=== PATIENT | female | born 1945 | race Caucasian/White ===

== ENCOUNTER 2018-08-09 16:05 | Emergency (ER) | payer MEDICARE, SELFPAY ==
[2018-08-09 16:06] VITALS: BP 170/87; PULSE 116; RESP 18; TEMP 36.2; O2SAT 98; BMI 26.3
--- NOTE | 2018-08-09 16:18 | ED.RN ---
[id number] called for EKG in triage
--- NOTE | 2018-08-09 16:30 | ED.RN ---
abnormal EKG- chest pain protocol initiated.
--- NOTE | 2018-08-09 16:51 | EKG12_ITS ---
Test Reason : ABDOMINAL PAIN Blood Pressure : / mmHG Vent. Rate : 112 BPM Atrial Rate : 112 BPM P-R Int : 126 ms QRS Dur : 076 ms QT Int : 328 ms P-R-T Axes : 076 -19 085 degrees QTc Int : 447 ms Sinus tachycardia Inferior infarct , age undetermined Possible Anterolateral infarct , age undetermined Abnormal ECG Confirmed by GERA SALINAS, DIANA ([id number]), slot editor ANT DOWD ([id number]) on 08/11/2018 2:16:57 PM Referred By: PEE Confirmed By:DIANA BOSS MD
--- NOTE | 2018-08-09 16:55 | RAD_ITS ---
STUDY: X-RAY CHEST REASON FOR EXAM: Female, 72 years old. Chest pain TECHNIQUE: Single AP portable view of the chest. COMPARISON: None. FINDINGS: The lungs are clear and expanded. There is no demonstrated pleural abnormality. Normal size heart. Normal mediastinum and vick. Normal visualized pulmonary arteries. Normal visualized aortic arch and descending thoracic aorta. Normal visualized thoracic spine. Normal visualized ribs, clavicles, and shoulders. There is no demonstrated abnormality of the visualized soft tissue structures of the upper abdomen. RAD/Chest 1 View (Portable) IMPRESSION: Normal x-ray examination of the chest. Electronically Signed: Nam Villalta MD at 17:44 EST , Service support ,
[2018-08-09 16:58] VITALS: O2SAT 100
[2018-08-09 17:09] LABS: Absolute Lymphocyte Count 1.29 X10^3/ul (0.83-4.51); Absolute Neutrophil Count 11.3 X10^3/uL (2.0-7.7); Basophil# 0.02 X10^3/uL; Basophil% 0.1 % (0-1); Eosinophil# 0.03 X10^3/uL; Eosinophils% 0.2 % (0-5); Hematocrit 40.6 % (37-47); Hemoglobin 13.8 g/dl (12.0-15.0); Lymphocyte # 1.29 X10^3/ul (4.0); Lymphocyte % 9.3 % (19-41); Mean Corpuscular Hgb 28.5 pg (27.0-32.0); Mean Corpuscular Volume 83.7 fL (81-99); Mean Platelet Vol. 9.4 fl (6.2-12.0); Monocyte# 1.19 X10^3/uL; Monocyte% 8.6 % (0-10); Neutrophil # 11.26 X10^3/uL (2.7-7.7); Neutrophil % 81.7 % (47-70); Platelet Count 418 K/mm3 (150-450); RBC Distribution Width CV 12.5 % (11.6-14.6); RBC Distribution Width SD 37.9 fl (35.1-43.9); Red Blood Count 4.85 M/mm3 (4.2-5.4); White Blood Count 13.8 K/mm3 (4.4-11.0)
[2018-08-09 17:10] LABS: POSITIVE COUNT NO; POSITIVE DIFFERENTIAL NO; POSITIVE MORPHOLOGY NO
--- NOTE | 2018-08-09 17:18 | ED.DCSUM_ITS ---
- ER Visit Summary Date of Service: 08/09/18 Chief Complaint: Abdominal pain, vomiting History of Present Illness: The patient is a 72 F reports waxing and waning upper abdominal pain over the past 4 days. She had nausea with mild vomiting for the past 2 days. Her last bowel movement was 3 days ago. She denies fever or chills. She denies history of prior abdominal surgery. Physical Examination: Blood pressure is 170/87, temperature 97.1, heart rate 116, respiratory rate 18, pulse ox 100% on room air. Head neck examination is unremarkable. Heart is regular rhythm. Her heart rate is fluctuating between the 80s in the 1 teens at the time of my examination with frequent PACs. Lung sounds are clear. Abdomen is soft with focal tenderness in epigastrium as well as in the right upper quadrant. No guarding or rebound. Active bowel sounds are noted. Test Results: One view chest x-ray is unremarkable. EKG is sinus at [address] change. CBC was a white count 13.8 with 81% neutrophils. Chemistry studies significant for a sodium of 132. LFTs and lipase are normal. Troponin is 0.031. Emergency Department Course and Treatment: Patient was given morphine, Zofran, and IV fluids. CT scan with p.o. and IV contrast is obtained that reveals evidence of a hiatal hernia. There is no suspicious solid organ abnormality. There is no acute inflammatory process. Patient did have a repeat 3-hour EKG wh ich reveals sinus rhythm at 82 with no acute ischemia. 3-hour troponin is 0.036. Test results are discussed with patient and family at bedside. At this time patient does not take any medication for reflux. She is now describing a burning type sensation in her throat with frequent belching. She will be started on Prevacid and given initial dose of Protonix here tonight. Treatment Plan: [] Disposition: Discharge Impression: Hiatal hernia This note was generated with [employer] dictation software. It may contain incorrect words, spelling, and punctuation that were not noted in review of the chart prior to signing ED Disposition - Plan for ED Patient: Disposition: Home or Assisted Living Chief Complaint: Abd Pain Instructions: What Is a Hiatal Hernia? Prescriptions: Ondansetron [Zofran Odt] 4 mg PO Q8H PRN PRN #10 tablet PRN Reason: Nausea Lansoprazole [Prevacid] 30 mg PO DAILY #30 capsule Referrals: Artemio Terry, [employer] [Primary Care Provider] - 1-2 Weeks
[2018-08-09] MEDS: Ondansetron 4 MG/2 ML Vial IV ×2 (17:23→21:08)
[2018-08-09] MEDS: Morphine 4 MG/ML Syringe IV ×2 (17:23→21:08)
[2018-08-09 17:24] LABS: Anion Gap 10 (5-15); BUN 25 mg/dL (7-18); BUN/Creat Ratio 23.4 RATIO (10-20); Calcium,Total 10.4 mg/dL (8.5-10.1); Chloride 94 mmol/L (98-107); Creatinine, Serum 1.07 mg/dL (0.55-1.02); EST Glomerular Filtration Rate 54 mL/min (>60); Est Glom Filt Rate - Afr Amer 65 mL/min (>60); Estimated Creatinine Clearance 38.14 ml/min; Glucose 115 mg/dL (74-106); Potassium 3.7 mmol/L (3.5-5.1); Sodium Level 132 mmol/L (136-145)
[2018-08-09 17:45] LABS: AST(SGOT) 18 U/L (15-37); Alanine Aminotransfer ALT/SGPT 21 U/L (13-56); Albumin, Serum 4.2 g/dL (3.2-5.0); Alkaline Phosphatase 94 U/L (45-117); Bilirubin, Direct 0.21 mg/dL (0.00-0.30); Globulin 3.8 g/dL (2.2-4.2); Lipase 145 U/L (73-393)
[2018-08-09] MEDS: 0.9% Normal Saline 1,000 ML 150 ML IV (17:50)
[2018-08-09 18:12] VITALS: BP 134/69; PULSE 57; RESP 20; O2SAT 97
--- NOTE | 2018-08-09 18:34 | CT_ITS ---
STUDY: CT ABDOMEN AND PELVIS WITH CONTRAST REASON FOR EXAM: Female, 72 years old. Epigastric pain and vomiting x3 days RADIATION DOSAGE (If Supplied By Facility): CTDIvol = ( 12.10 ) mGy, DLP = ( 648.35 ) mGycm TECHNIQUE: Transaxial images were obtained from the dome of the diaphragm to the symphysis pubis with oral contrast. 100 ml of Isovue 300 contrast was administered. Sagittal and coronal images were reconstructed. Individualized dose optimization techniques were used for this CT. COMPARISON: None. FINDINGS: The visualized lung bases are unremarkable. The visualized portions of the heart are within normal limits. Normal liver. Normal gallbladder and extrahepatic biliary system. Normal spleen. Normal pancreas. Normal bilateral adrenal glands. Normal right kidney. Normal left kidney. There is a small hiatal hernia. Normal small intestine. There are multiple colonic diverticula consistent with diverticulosis. The appendix is visualized and appears normal. Appendix best seen on coronal recon image 44. Normal abdominal aorta. Normal inferior vena cava. Normal retroperitoneum. Normal urinary bladder. Uterus is still present, an IUD is still present within the uterus. No suspicious adnexal mass or free fluid. Normal abdominal wall. There are diffuse degenerative changes of the visualized lumbar spine, and pelvis. CT/Abdomen/Pelvis WITH Contrast IMPRESSION: Hiatal hernia No suspicious solid organ abnormality No CT evidence of an acute inflammatory process, scattered colonic diverticulosis noted. Uterus is still present, the endometrium cannot be accurately evaluated. There is an apparent IUD still present within the uterus. No suspicious cystic mass or free fluid. Electronically Signed: Neal Vaz MD at 21:51 EST , Service support ,
--- NOTE | 2018-08-09 19:35 | EKG12_ITS ---
Test Reason : F/U ABD PAIN Blood Pressure : / mmHG Vent. Rate : 082 BPM Atrial Rate : 082 BPM P-R Int : 140 ms QRS Dur : 072 ms QT Int : 360 ms P-R-T Axes : 060 -26 036 degrees QTc Int : 420 ms Normal sinus rhythm with sinus arrhythmia Minimal voltage criteria for LVH, may be normal variant Possible Inferior infarct , age undetermined Cannot rule out Anterior infarct , age undetermined Abnormal ECG Confirmed by GERA SALINAS, DIANA ([id number]), assistant editor ANT DOWD ([id number]) on 08/11/2018 2:16:42 PM Referred By: PEE Confirmed By:DIANA BOSS MD
[2018-08-09 20:00] VITALS: BP 106/92; PULSE 93; RESP 17; O2SAT 98
--- NOTE | 2018-08-09 22:06 | DCINST.ED_ITS ---
ED Disposition - Plan for ED Patient: Disposition: Home or Assisted Living Chief Complaint: Abd Pain Instructions: What Is a Hiatal Hernia? Prescriptions: Ondansetron [Zofran Odt] 4 mg PO Q8H PRN PRN #10 tablet PRN Reason: Nausea Lansoprazole [Prevacid] 30 mg PO DAILY #30 capsule Referrals: Artemio Terry, [employer] [Primary Care Provider] - 1-2 Weeks
[2018-08-09 22:08] VITALS: BP 117/60; PULSE 71; RESP 15; O2SAT 99
[2018-08-09] MEDS: Ondansetron ODT 4 MG Tablet PO (22:17)
[2018-08-09] MEDS: Pantoprazole Sodium 40 MG Tablet PO (22:17)
== END 2018-08-09 22:21 | disposition home or self-care (01) ==
PROVIDERS: Emergency Provider Emergency Medicine; Family Provider Nurse Practitioner Family; PCP Nurse Practitioner Family
DX: K44.9 Diaphragmatic hernia without obstruction or gangrene (principal)
CPT/HCPCS: 71045; 74177; 80048; 80076; 83690; 84484; 85025; 93005; 96361; 96374; 96375; 96376; 99284; J7030; J7040; Q9967; A4216; J2405

== ENCOUNTER → 2020-06-07 | Outpatient (CLI) | payer MEDICARE, SELFPAY ==
[2020-06-07 12:30] LABS: Vitamin D,25 Hydroxy 78.8 ng/mL
[2020-06-07 12:41] LABS: AST(SGOT) 19 U/L (15-37); Alanine Aminotransfer ALT/SGPT 17 U/L (13-56); Anion Gap 7 (5-15); BUN 25 mg/dL (7-18); BUN/Creat Ratio 22.5 RATIO (10-20); Chloride 105 mmol/L (98-107); Cholesterol 215 mg/dL (200); Creatinine, Serum 1.11 mg/dL (0.55-1.02); EST Glomerular Filtration Rate 51 mL/min (>60); Est Glom Filt Rate - Afr Amer 62 mL/min (>60); Glucose 103 mg/dL (74-106); High Density Lipoprotein 49 mg/dL; Sodium Level 141 mmol/L (136-145); Triglycerides 299 mg/dL; Very Low Density Lipoprotein 60 mg/dL (5-40)
== END | disposition home or self-care (01) ==
LOC: MFPLAB 10:52
PROVIDERS: PCP Family Medicine; Referring Provider Family Medicine; Visit Provider Family Medicine
DX: I10 Essential (primary) hypertension (principal); E55.9 Vitamin D deficiency, unspecified; E78.00 Pure hypercholesterolemia, unspecified
CPT/HCPCS: 36415; 80048; 80061; 82306; 84450; 84460

== ENCOUNTER → 2020-09-30 11:42 | Outpatient (CLI) | payer MEDICARE, SELFPAY ==
--- NOTE | 2020-09-30 11:48 | RAD_ITS ---
STUDY: X-RAY - LEFT FOOT CLINICAL: Left foot pain. TECHNIQUE: 3 view(s) of the foot. COMPARISON: None. FINDINGS: There is osteopenia. There is a small plantar calcaneal enthesophyte. Normal talus, calcaneus, and tarsal bones. There is moderately severe joint space narrowing of the navicular-cuneiform articulation and moderate joint space narrowing of the fourth and fifth tarsometatarsal articulations. Normal metatarsi. There is a dorsal osteophyte of the first metatarsal head and severe joint space narrowing of a metatarsophalangeal joint of the great toe. Normal tibial and fibular sesamoid bones. There is moderate joint space narrowing of the interphalangeal joint of the great toe. Normal phalanges of the great toe. Normal second through fifth metatarsophalangeal joints. Normal interphalangeal joints and phalanges of the lesser toes. The soft tissue structures are unremarkable. RAD/Foot min 3 Views IMPRESSION: Osteoarthritis. Small plantar calcaneal enthesophyte. Electronically Signed: Raúl Duran MD at 15:03 EST Tel , Service support ,
--- NOTE | 2020-09-30 11:48 | RAD_ITS ---
STUDY: X-RAY - RIGHT FOOT CLINICAL: Right foot pain. TECHNIQUE: 3 view(s) of the foot. COMPARISON: None. FINDINGS: There is osteopenia. There is a small plantar calcaneal enthesophyte. Otherwise, unremarkable talus, calcaneus, and tarsal bones. There is moderate joint space narrowing of the navicular-cuneiform articulations. There is mild joint space narrowing of the second tarsometatarsal articulation. There is moderately severe joint space narrowing of the fourth and fifth tarsometatarsal articulations. Normal metatarsi. There is severe joint space narrowing of the metatarsophalangeal joint of the great toe. Normal tibial and fibular sesamoid bones. Normal interphalangeal joint of the great toe. Normal phalanges of the great toe. Normal second through fifth metatarsophalangeal joints. Normal interphalangeal joints and phalanges of the lesser toes. The soft tissue structures are unremarkable. RAD/Foot min 3 Views IMPRESSION: Osteoarthritis. Small plantar calcaneal enthesophyte. Electronically Signed: Raúl Duran MD at 14:58 EST Tel , Service support ,
== END ==
PROVIDERS: PCP Family Medicine; Referring Provider Family Medicine; Visit Provider Family Medicine
DX: M79.671 Pain in right foot (principal); M79.672 Pain in left foot
CPT/HCPCS: 73630

== ENCOUNTER → 2021-03-28 10:30 | Outpatient (CLI) | payer MEDICARE, SELFPAY ==
[2021-03-28 12:38] LABS: Vitamin D,25 Hydroxy 75.9 ng/mL
[2021-03-28 12:53] LABS: AST(SGOT) 19 U/L (15-37); Alanine Aminotransfer ALT/SGPT 19 U/L (13-56); Anion Gap 7 (5-15); BUN 15 mg/dL (7-18); BUN/Creat Ratio 14.9 RATIO (10-20); Calcium,Total 9.1 mg/dL (8.5-10.1); Chloride 102 mmol/L (98-107); Cholesterol 180 mg/dL (200); Creatinine, Serum 1.01 mg/dL (0.55-1.02); EST Glomerular Filtration Rate 57 mL/min (>60); Est Glom Filt Rate - Afr Amer 69 mL/min (>60); Glucose 109 mg/dL (74-106); High Density Lipoprotein 57 mg/dL; Potassium 3.4 mmol/L (3.5-5.1); Sodium Level 138 mmol/L (136-145); Triglycerides 147 mg/dL; Very Low Density Lipoprotein 29 mg/dL (5-40)
== END ==
PROVIDERS: PCP Family Medicine; Referring Provider Family Medicine; Visit Provider Family Medicine
DX: I10 Essential (primary) hypertension (principal); E55.9 Vitamin D deficiency, unspecified; E78.00 Pure hypercholesterolemia, unspecified
CPT/HCPCS: 36415; 80048; 80061; 82306; 84450; 84460

== ENCOUNTER → 2022-04-03 | Outpatient (CLI) | payer MEDICARE, SELFPAY ==
[2022-04-03 18:27] LABS: AST(SGOT) 28 U/L (15-37); Alanine Aminotransfer ALT/SGPT 27 U/L (13-56); Anion Gap 8 (5-15); BUN 17 mg/dL (7-18); BUN/Creat Ratio 12.7 RATIO (10-20); Calcium,Total 9.3 mg/dL (8.5-10.1); Chloride 99 mmol/L (98-107); Cholesterol 210 mg/dL (200); Creatinine, Serum 1.34 mg/dL (0.55-1.02); EST Glomerular Filtration Rate 41 mL/min (>60); Est Glom Filt Rate - Afr Amer 50 mL/min (>60); Glucose 114 mg/dL (74-106); High Density Lipoprotein 49 mg/dL; Potassium 4.1 mmol/L (3.5-5.1); Sodium Level 135 mmol/L (136-145); Thyroid Stim Hormone (TSH) 1.02 uIU/mL (0.358-3.74); Triglycerides 247 mg/dL; Very Low Density Lipoprotein 49 mg/dL (5-40)
== END | disposition home or self-care (01) ==
LOC: MFPLAB 15:12
PROVIDERS: PCP Family Medicine; Visit Provider Family Medicine
DX: E78.00 Pure hypercholesterolemia, unspecified (principal); F03.90 Unspecified dementia, unspecified severity, without behavioral disturbance, psychotic disturbance, mood disturbance, and anxiety; I10 Essential (primary) hypertension
CPT/HCPCS: 36415; 80048; 80061; 84443; 84450; 84460

== ENCOUNTER → 2022-09-04 | Outpatient (CLI) | payer MEDICARE, SELFPAY ==
[2022-09-04 18:12] LABS: Vitamin D,25 Hydroxy 75.8 ng/mL
[2022-09-04 20:18] LABS: ALB/GLOB Ratio 1.3 RATIO (0.9-2.4); AST(SGOT) 32 U/L (15-37); Alanine Aminotransfer ALT/SGPT 34 U/L (13-56); Albumin, Serum 3.7 g/dL (3.2-5.0); Alkaline Phosphatase 98 U/L (45-117); Anion Gap 10 (5-15); BUN 16 mg/dL (7-18); BUN/Creat Ratio 14.8 RATIO (10-20); Calcium,Total 8.8 mg/dL (8.5-10.1); Chloride 104 mmol/L (98-107); Cholesterol 288 mg/dL (200); Creatinine, Serum 1.08 mg/dL (0.55-1.02); EST Glomerular Filtration Rate 52 mL/min (>60); Est Glom Filt Rate - Afr Amer 64 mL/min (>60); Globulin 2.8 g/dL (2.2-4.2); Glucose 122 mg/dL (74-106); High Density Lipoprotein 53 mg/dL; Protein, Total 6.5 g/dL (6.4-8.2); Sodium Level 140 mmol/L (136-145); Triglycerides 271 mg/dL; Very Low Density Lipoprotein 54 mg/dL (5-40)
== END | disposition home or self-care (01) ==
LOC: MFPLAB 15:44
PROVIDERS: PCP Family Medicine; Referring Provider Family Medicine; Visit Provider Nurse Practitioner Family
DX: I10 Essential (primary) hypertension (principal); E55.9 Vitamin D deficiency, unspecified; E78.00 Pure hypercholesterolemia, unspecified
CPT/HCPCS: 36415; 80053; 80061; 82306